=== PATIENT | male | born 1980 | race Caucasian/White ===

== ENCOUNTER 2018-06-09 14:35 | Emergency (ER) | payer BC ==
[2018-06-09 14:50] VITALS: TEMP 97.9
[2018-06-09 15:14] LABS: BASOPHILS % (AUTO) 1 % (0-3); EOSINOPHILS % (AUTO) 0 % (0-9); HEMATOCRIT 46 % (39-53); HEMOGLOBIN 15.7 gm/dl (13.5-17.7); LYMPHOCYTES % (AUTO) 9.1 % (10-50); MEAN CORPUSCULAR HEMOGLOBIN 29.3 pg (27.0-32.0); MEAN CORPUSCULAR HGB CONC 34.4 gm/dl (32.0-36.0); MEAN CORPUSCULAR VOLUME 85 fL (80-100); MONOCYTES % (AUTO) 5.3 % (0-12)
[2018-06-09] MEDS ORDERED: LACTATED RINGERS 1,000 ML IV ONE (15:20)
[2018-06-09] MEDS ORDERED: SODIUM CHLORIDE 0.9% 1000 ML SOL IV SCH (15:20)
[2018-06-09] MEDS ORDERED: HYDROMORPHONE 1 MG/ML SYRINGE IV PRN (15:20)
[2018-06-09] MEDS ORDERED: HYDROMORPHONE 1 MG/ML SYRINGE ONE (15:22)
[2018-06-09 15:42] LABS: ALBUMIN 3.6 gm/dl (3.4-5.0); BILIRUBIN,TOTAL 0.3 mg/dl (0.2-1.0); CALCIUM 8.6 mg/dl (8.5-10.1); CARBON DIOXIDE 28.1 mEq/L (21-32); CREATININE 1.13 mg/dl (0.80-1.30); POTASSIUM 3.9 mMol/L (3.5-5.1); TOTAL PROTEIN 7.1 gm/dl (6.4-8.2)
[2018-06-09 16:55] LABS: APPEARANCE,URINE Clear; BILIRUBIN,URINE NEGATIVE (NEGATIVE); COLOR,URINE Yellow; GLUCOSE, URINE (UA) NEGATIVE (NEGATIVE); KETONES,URINE NEGATIVE (NEGATIVE); LEUKOCYTE ESTERASE ,URINE NEGATIVE (NEGATIVE); NITRATE,URINE NEGATIVE (NEGATIVE); OCCULT BLOOD,URINE NEGATIVE (NEG-TRACE); UROBILINOGEN,URINE 0.2 (0.2-1.0 EU)
[2018-06-09 17:02] LABS: BACTERIA NEGATIVE (< 1+); CRYSTALS NEGATIVE (0-3 AVE/HPF); EPITHELIAL CELLS 0-2 (SQUAMOUS); RBC,URINE NEG (0-3AV/HPF); WBC,URINE NEG (0-5AV/HPF)
[2018-06-09 17:25] VITALS: RESP 18
[2018-06-09 17:26] VITALS: BP 149/97; PULSE 98; O2SAT 99
[2018-06-09 20:53] LABS: LACTIC ACID 1.8 mMol/L (0.0-2.0)
== END 2018-06-09 17:01 | disposition home or self-care (01) ==
LOC: ED 14:35
DX: R10.9 Unspecified abdominal pain (principal)
CPT/HCPCS: 74177; 80053; 81001; 82150; 85025; 96365; 96374; 99283; 99284; Q9967; J1170